=== PATIENT | male | born 1960 | race African-American/Black ===

== ENCOUNTER 2016-10-02 10:34 | Emergency (ER) | payer MEDICAID, OTHER ==
[2016-10-02 11:05] VITALS: BP 123/75
--- NOTE | 2016-10-02 11:20 | UC ---
Hip/Pelvis Pain - HPI Summary HPI Summary: The patient comes in for: The patient comes in today for: 1. Hypertension: Onset: 8 years. Palliative/provocative: Not taking medication makes it worse. Quality: Controlled on medication. Region: CVS Severity: NO pain. Time: Constant. Associated symptoms: Rx:The patient comes in today for: He is taking 10 mg a day for 8 years. 2. Left hip pain/resurfacing secondary to athletic damage (resurfacing done at [facility] in 2009). Onset: 2010 Palliative/provocative: He states he has worsening with walking. He was using a cane. Quality: Stinging. Region: Left hip. Severity: 6/10 but he is walking right now OK. Time: Comes and goes. Associated symptoms: He is on SSI in 2008 in [place]. Knee pain/lower back pain: He also has this from osteoarthritis of both knees. 3. History of possible bipolar disorder: He states he was seen by mental health doctors who stated that he has bipolar disorder in 2008 and was put on Rx (name he can't remember) from 2008 and 2009. 4. Form to fill out: "Medical Examination for employability assessment, disability screening and alcoholism/drug addiction determination." He used marijuana and cocaine in 2000. * * - History Of Current Complaint Chief Complaint: UCMedRefill Stated Complaint: MED REFILL HIP/BACK PAIN Time Seen by Provider: 10/02/16 11:14 Hx Obtained From: Patient - Allergies/Home Medications Allergies/Adverse Reactions: Allergies Allergy/AdvReac Type Severity Reaction Status Date / Time No Known Allergies Allergy Verified 11/28/13 15:41 PMH/Surg Hx/FS Hx/Imm Hx Previously Healthy: No Endocrine History Of: Reports: Diabetes - pre-diabetic diagnosis when in [facility]. Denies: Thyroid Disease, Hyperthyroidism, Hypothyroidism, Dyslipidemia Cardiovascular History Of: Reports: Hypertension Denies: Cardiac Disorders, Pacemaker/ICD, Myocardial Infarction, Congestive Heart Failure, Atrial Fibrillation, Deep Vein Thrombosis, Bleeding Disorders Respiratory History Of: Denies: COPD, Asthma, Bronchitis, Pneumonia, Pulmonary Embolism GI/ History Of: Denies: Gastroesophageal Reflux, Ulcer, Gastrointestinal Bleed, Gall Bladder Disease, Kidney Stones, Diverticulitis, Renal Disease, Urosepsis Neurological History Of: Denies: TIA, CVA, Dementia, Seizures, Migraine Psychological History Of: Denies: Anxiety, Depression, Bipolar Disorder, Schizophrenia, Post Traumatic Stress Disorder Cancer History Of: Denies: Lung Cancer, Colorectal Cancer, Breast Cancer, Prostate Cancer, Cervical Cancer Other History Of: Anticoagulant Therapy - He was told to be on aspirin daily by [facility]. Negative For: HIV, Hepatitis B, Hepatitis C - Surgical History Surgical History: Yes Surgery Procedure, Year, and Place: 2009 Left hip resurfacing. 1995 Groin hernia repair. 1998 Umbilical hernia repair - Family History Known Family History: Positive: Cardiac Disease, Hypertension, Diabetes - Social History Occupation: Unemployed Alcohol Use: None Substance Use Type: None Smoking Status (MU): Never Smoked Tobacco Review of Systems Constitutional: Negative Skin: Negative Eyes: Blurred Vision ENT: Negative Respiratory: Negative Cardiovascular: Negative Gastrointestinal: Negative Genitourinary: Negative All Other Systems Reviewed And Are Negative: Yes Physical Exam Triage Information Reviewed: Yes Appearance: Well-Appearing, No Pain Distress, Well-Nourished Vital Signs: Initial Vital Signs Temp 98.4 F 10/02/16 10:57 Pulse 57 10/02/16 10:57 Resp 16 10/02/16 10:57 BP 123/75 10/02/16 10:57 Pulse Ox 98 10/02/16 10:57 Vital Signs Reviewed: Yes Eyes: Positive: Conjunctiva Clear. Negative: Discharge ENT: Positive: Hearing grossly normal. Negative: Pharyngeal erythema, Nasal congestion, Nasal drainage, TM bulging, TM dull, TM red, Tonsillar swelling, Tonsillar exudate Dental: Negative: Gross Decay/Caries @, Dental Fracture @ Neck: Positive: Supple, Nontender, No Lymphadenopathy. Negative: Nuchal Rigidity Respiratory: Positive: Chest non-tender, Lungs clear, No respiratory distress, No accessory muscle use. Negative: Crackles, Wheezing Cardiovascular: Positive: RRR, No Murmur Abdomen Description: Positive: Nontender, No Organomegaly, Soft. Negative: Distended, Guarding Musculoskeletal: Positive: Strength Intact, No Edema, ROM Limited @, Other: - Left hip: There is a well-healed large surgical scar at the left lateral hip area. There is a reduction in the full range of motion and there is some discomfort with movement. He comes in using a cane. Bilateral knees: No effusion, but there is some crepitations. Neurological: Positive: Alert, Muscle Tone Normal, Fatigued Psychological: Positive: Age Appropriate Behavior, Consolable Skin: Positive: Other - He has rope-like varicose veins of the lower legs.. Negative: rashes, breakdown Hip Injury Course/Dx - Course Course Of Treatment: The "Medical examination for employability assessment, disability screening, and alcoholism/drug addiction determination" form was filled out. - Differential Dx/Diagnosis Provider Diagnoses: High blood pressure. Chronic degenerative joint disease of the bilateral knees and left hip. Varicose veins of the legs. History of bipolar disorder. History of substance abuse (marijuana, cocaine) Discharge - Discharge Plan Condition: Stable Disposition: HOME Patient Education Materials: Bipolar Disorder (ED), Osteoarthritis (ED), Chronic Hypertension (ED) Referrals: No Primary Care Phys,NOPCP [Primary Care Provider] - 1 Week (Please see your primary care provider in about three days to see how well you are doing. If you don't have a primary care provider, please contact the physician referral service. If you can't get in timely, please you may come back to see us until you can. If you get worse, please be seen sooner by us or the ER.) [facility] [Outside]
== END 2016-10-02 12:30 | disposition home or self-care (01) ==
LOC: UCEAST 10:34
DX: I10 Essential (primary) hypertension (principal); Z76.0 Encounter for issue of repeat prescription; M17.0 Bilateral primary osteoarthritis of knee; M16.12 Unilateral primary osteoarthritis, left hip; I83.93 Asymptomatic varicose veins of bilateral lower extremities; F31.9 Bipolar disorder, unspecified; Z87.898 Personal history of other specified conditions
CPT/HCPCS: 99212; G0463

== ENCOUNTER 2018-07-05 14:53 | Emergency (ER) | payer OTHER ==
[2018-07-05] MEDS ORDERED: Ibuprofen TAB* 600 MG PO ONE (15:37)
[2018-07-05 17:39] VITALS: BP 140/90
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
== END 2018-07-05 17:38 | disposition home or self-care (01) ==
LOC: ED 14:53
DX: R07.81 Pleurodynia (principal); R07.89 Other chest pain; Z79.82 Long term (current) use of aspirin; Z82.49 Family history of ischemic heart disease and other diseases of the circulatory system; Z83.3 Family history of diabetes mellitus
CPT/HCPCS: 71111; 99281; A9270-GY

== ENCOUNTER 2019-03-19 16:07 | Emergency (ER) | payer MEDICAID, OTHER ==
[2019-03-19 16:24] VITALS: BP 137/90
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
== END 2019-03-19 19:00 | disposition home or self-care (01) ==
LOC: UCEAST 16:07
DX: R06.02 Shortness of breath (principal); K21.9 Gastro-esophageal reflux disease without esophagitis; M67.431 Ganglion, right wrist; D29.4 Benign neoplasm of scrotum; I10 Essential (primary) hypertension; Z79.82 Long term (current) use of aspirin
CPT/HCPCS: 71046; 76870; 93005; 99212; G0463

== ENCOUNTER 2019-09-05 17:34 | Emergency (ER) | payer MEDICAID ==
[2019-09-05 17:51] VITALS: BP 150/91
--- NOTE | 2019-09-05 18:36 | UC ---
Back Pain HPI - HPI Summary HPI Summary: patient to urgent care this evening with acute exacerbation of chronic back pain --no urinary sx-----no known injury - History of Current Complaint Chief Complaint: UCBackPain Stated Complaint: BACK PAIN Time Seen by Provider: 09/05/19 18:23 Hx Obtained From: Patient Onset/Duration: Gradual Onset, Lasting Days, Still Present Timing: Constant Pain Intensity: 8 Pain Scale Used: 0-10 Numeric Back Pain: Is Discrete @ - lumbar spine and bilateral muscles Character: Aching, Spasmodic, Stiffness Aggravating Factor(s): Movement, Lifting, Bending Alleviating Factor(s): Rest, Position Associated Signs And Symptoms: Negative: Weakness, Numbness, Tingling, Abdominal Pain, Flank Pain, Bladder Incontinence, Bowel Incontinence - Allergies/Home Medications Allergies/Adverse Reactions: Allergies Allergy/AdvReac Type Severity Reaction Status Date / Time No Known Allergies Allergy Verified 09/05/19 17:51 PMH/Surg Hx/FS Hx/Imm Hx Previously Healthy: No - back pain Cardiovascular History: Hypertension Other History Of: Anticoagulant Therapy - He was told to be on aspirin daily by [facility]. Negative For: HIV, Hepatitis B, Hepatitis C - Surgical History Surgical History: Yes Surgery Procedure, Year, and Place: 2009 Left hip resurfacing - [place]. 1995 right and left inguinal repair - [place]. 1998 Umbilical hernia repair - [place] - Family History Known Family History: Positive: Cardiac Disease, Hypertension, Diabetes - Social History Occupation: Disabled Lives: With Family Alcohol Use: None Substance Use Type: Marijuana Substance Use Comment - Amount & Last Used: daily Smoking Status (MU): Never Smoked Tobacco Amount Used/How Often: pt denies smoking hx Review of Systems All Other Systems Reviewed And Are Negative: Yes Constitutional: Positive: Negative Skin: Positive: Negative Eyes: Positive: Negative ENT: Positive: Negative Respiratory: Positive: Negative Cardiovascular: Positive: Negative Gastrointestinal: Positive: Negative Genitourinary: Positive: Negative Motor: Positive: Negative Neurovascular: Positive: Negative Musculoskeletal: Positive: Arthralgia - lumbar, Myalgia - paraspinal muscles lumbar region of spine Neurological: Positive: Negative Psychological: Positive: Negative Is Patient Immunocompromised?: No Physical Exam Triage Information Reviewed: Yes Appearance: Well-Appearing, Well-Nourished, Pain Distress - guarded gait walking with cane Vital Signs: Initial Vital Signs Temp 98.7 F 09/05/19 17:44 Pulse 88 09/05/19 17:44 Resp 20 09/05/19 17:44 BP 150/91 09/05/19 17:44 Pulse Ox 99 09/05/19 17:44 Vital Signs Reviewed: Yes Eye Exam: Normal Eyes: Positive: Conjunctiva Clear ENT Exam: Normal ENT: Positive: Normal ENT inspection, Hearing grossly normal. Negative: Nasal congestion, Trismus, Muffled voice, Hoarse voice Neck exam: Normal Neck: Positive: Supple, Nontender Respiratory Exam: Normal Respiratory: Positive: Chest non-tender, Lungs clear, Normal breath sounds, No respiratory distress, No accessory muscle use Cardiovascular Exam: Normal Cardiovascular: Positive: RRR, No Murmur, Pulses Normal, Brisk Capillary Refill Abdomen Description: Negative: CVA Tenderness (R), CVA Tenderness (L) Bowel Sounds: Positive: Present Musculoskeletal Exam: Normal Musculoskeletal: Positive: Strength Intact, ROM Intact, No Edema Neurological Exam: Normal Neurological: Positive: Alert, Muscle Tone Normal Psychological Exam: Normal Skin Exam: Normal Back Pain Course/Dx - Course Course Of Treatment: tordal and flexeril given at urgent care---rx for nsaid and flexeril prn--- encouraged patient to follow with pcp for bp and further management of back pain - Differential Dx/Diagnosis Provider Diagnosis: Hypertension, Lumbar back pain Discharge ED - Sign-Out/Discharge Documenting (check all that apply): Patient Departure All imaging exams completed and their final reports reviewed: No Studies - Discharge Plan Condition: Stable Disposition: HOME Prescriptions: Cyclobenzaprine TAB* [Flexeril 10 MG TAB*] 10 mg PO TID PRN #15 tab PRN Reason: muscle spasm Meloxicam [Mobic] 7.5 mg PO BID #15 tablet Patient Education Materials: Hypertension (ED), Muscle Spasm (ED), Chronic Back Pain (DC), Lower Back Exercises (ED) Referrals: Jesus Tse MD [Primary Care Provider] - 1 Week - Billing Disposition and Condition Condition: STABLE Disposition: Home
[2019-09-05] MEDS ORDERED: Ketorolac *IM* INJ* 60 MG/2 ML VIAL IM ONE (18:41)
[2019-09-05] MEDS ORDERED: Cyclobenzaprine TAB* 10 MG PO ONE (18:41)
== END 2019-09-05 19:07 | disposition home or self-care (01) ==
LOC: UCEAST 17:34
DX: M54.5 Low back pain (principal); I10 Essential (primary) hypertension; Z79.82 Long term (current) use of aspirin
CPT/HCPCS: 96372; 99212; A9270-GY; G0463; J1885

== ENCOUNTER 2024-09-17 11:45 | Inpatient (IN) ==
[2024-09-17] MEDS: Iodixanol 320 (CONTRAST) 100 ML SDV IV ONE (11:57)
[2024-09-17 12:08] LABS: ABS Basophils 0.1 10^3/uL (0.0-0.1); ABS Eosinophils 0.3 10^3/uL (0.0-0.5); ABS Lymphocytes 1.7 10^3/uL (1.0-4.8); ABS Monocytes 0.7 10^3/uL (0.0-1.1); ABS Neutrophils 6.1 10^3/uL (1.5-7.6); Eosinophil % 3.4 %; Hemoglobin 13.8 g/dL (13.2-16.3); Lymphocyte % 19.5 %; Mean Corpuscular Hemoglobin 27.6 pg (27-33); Mean Corpuscular Hgb Conc 33.7 g/dL (31-36); Mean Corpuscular Volume 81.9 fL (80-97); Mean Platelet Volume 8.4 fL (7.5-11.2); Platelet Count 198 10^3/uL (150-450); Red Blood Count 5.01 10^6/uL (4.06-5.63); Red Cell Distribution Width 13.9 % (12-17)
[2024-09-17 12:14] LABS: INR 1.09 (0.85-1.14)
[2024-09-17 12:15] LABS: Activated Partial Thrombo Time 29.3 seconds (26.0-38.0)
[2024-09-17 12:52] LABS: Albumin 3.9 g/dL (3.5-5.7); Albumin/Globulin Ratio 1.6 (1-3); Calcium 8.6 mg/dL (8.6-10.3); Creatinine, Serum 1.12 mg/dL (0.67-1.17); Direct Bilirubin 0.1 mg/dL (0.03-0.18); Globulin 2.5 g/dL (2-4); HDL Cholesterol 33.3 mg/dL; Indirect Bilirubin 0.5 mg/dL (0.3-1.0); Potassium 4.3 mmol/L (3.5-5.0); Total Bilirubin 0.6 mg/dL (0.2-1.0); Total Protein 6.4 g/dL (6.4-8.9); eGFR CKD-EPI 74.3 (>60)
[2024-09-17 13:12] LABS: Urine Appearance Clear; Urine Bilirubin Negative (Negative); Urine Blood Negative (Negative); Urine Color Light-Yellow; Urine Glucose Negative (Negative); Urine Ketones Negative (Negative); Urine Nitrite Negative (Negative); Urine Protein Negative (Negative); Urine Specific Gravity 1.043 (1.002-1.030); Urine Urobilinogen Negative (Negative); Urine pH 6.5 (5.0-8.0)
[2024-09-18] MEDS ORDERED: Sulfur Hexaflouride MICROSPHR 25 MG VIAL IV PRN (04:23)
[2024-09-19] MEDS: Aspirin EC 81 mg TAB.EC (enteric coated) PO SCH (10:15)
[2024-09-20 13:30] VITALS: BP 101/90
== END 2024-09-20 16:05 | DRG 45 ==
LOC: ED 11:45 → EDHOLD 11:45 → OBSVTOIN 09-18 03:15 → SUATTDRO 09-18 03:15 → MEDTELE 09-18 04:51
PROVIDERS: ADMIT Internal Medicine; ATTEND Internal Medicine